=== PATIENT | male | born 1945 | race Caucasian/White ===

== ENCOUNTER 2020-07-10 01:49 | Inpatient (IN) | payer MEDICARE, OTHER ==
[~2020-07-10] VITALS: Ht 177.8 cm; Wt 54.5 kg
[2020-07-10] MEDS ORDERED: PANTOPRAZOLE 40 MG IV IVPush ONE (02:30)
[2020-07-10] MEDS ORDERED: PLEASE ENTER ALLERGIES MC SCH (02:30)
[2020-07-10] MEDS ORDERED: SODIUM CHLORIDE FLUSH 10ML SYR IVF ONE (02:30)
[2020-07-10] MEDS ORDERED: OCTREOTIDE 500 MCG in SODIUM CHLORIDE 0.9% 99 ML IV SCH (02:30)
[2020-07-10] MEDS ORDERED: PANTOPRAZOLE 80 MG in SODIUM CHLORIDE 0.9% 100 ML IV SCH (02:30)
[2020-07-10] MEDS ORDERED: PANTOPRAZOLE 40 MG IV ONE (02:55)
[2020-07-10 03:24] LABS: BASOPHILS % (AUTO) 2 % (0-1); EOSINOPHILS % (AUTO) 4 % (1-7); LYMPHOCYTES % (AUTO) 10 % (22-44); MEAN CORPUSCULAR HEMOGLOBIN 33.4 pg (27.5-34.5); MEAN CORPUSCULAR HGB CONC 32.6 g/dL (33.2-36.2); MEAN PLATELET VOLUME 8.6 fL (7.4-10.4); MONOCYTES % (AUTO) 21 % (2-9); NEUTROPHILS % (AUTO) 64 % (42-75); RED BLOOD COUNT 2.21 x10^6/uL (4.38-5.82); RED CELL DISTRIBUTION WIDTH 17.9 % (9.4-14.8)
[2020-07-10 03:33] LABS: ALANINE AMINOTRANSFERASE 21 U/L (12-78); ANION GAP 3 mmol/L (5-15); CALCIUM 7.9 mg/dL (8.5-10.1); CHLORIDE 104 mmol/L (98-107); CREATININE 3.55 mg/dL (0.7-1.3)
[2020-07-10 03:35] LABS: ALKALINE PHOSPHATASE 216 U/L (45-117); TOTAL PROTEIN 6.2 g/dL (6.4-8.2)
[2020-07-10 04:03] LABS: INTERNATIONAL NORMALIZED RATIO 1.3 (0.93-1.1); PROTHROMBIN TIME 13.7 Seconds (9.6-11.5)
[2020-07-10 04:19] LABS: MD YES; PLATELET COUNT 47 x10^3/uL (130-400)
[2020-07-10 04:23] LABS: ANISOCYTOSIS 1+; BAND#(MANUAL) 0.11 x10^3/uL; BANDS%(MANUAL) 3 % (0-7); EOS#(MANUAL) 0.18 x10^3/uL (0.0-0.4); EOS% (MANUAL) 5 % (1-7); LYMPH#(MANUAL) 0.29 x10^3/uL (1-3.4); LYMPHS% (MANUAL) 8 % (22-44); METAMYELOCYTES# (MANUAL) 0.07 x10^3/uL (0-0); METAMYELOCYTES% (MANUAL) 2 % (0-1); MONOS#(MANUAL) 0.47 x10^3/uL (0.3-2.7); MONOS% (MANUAL) 13 % (2-9); SEG#(MANUAL) 2.48 x10^3/uL (1.8-6.8); SEGS% (MANUAL) 69 % (42-75)
[2020-07-10 04:24] LABS: OVALOCYTES 1+
[2020-07-10 04:25] LABS: <PLATELET ESTIMATE> DECREASED; <PLT MORPHOLOGY> NORMAL PLT MORPH
[2020-07-10 04:54] VITALS: BP 99/59
[2020-07-10] MEDS ORDERED: morphine SULFATE 10 MG/ML, 1ML IVPush PRN (05:00)
[2020-07-10] MEDS ORDERED: OXYcodone IR 5MG TABLET PO PRN (05:00)
[2020-07-10] MEDS ORDERED: ONDANSETRON ODT 4 MG PO PRN (05:00)
[2020-07-10] MEDS ORDERED: hydrALAzine 20 MG/ML, 1ML IVPush PRN (05:00)
[2020-07-10] MEDS ORDERED: LABETALOL 5MG/ML, 20ML IVPush PRN (05:00)
[2020-07-10] MEDS ORDERED: LACTULOSE 10 GM/15 ML UDC PO SCH (05:00)
[2020-07-10] MEDS ORDERED: ONDANSETRON 2MG/ML, 2ML IVPush PRN (05:00)
[2020-07-10] MEDS ORDERED: PROMETHAZINE 25 MG/ML, 1ML IM PRN (05:00)
[2020-07-10 05:13] VITALS: BP 104/59
[2020-07-10 06:08] VITALS: BP 96/55
[2020-07-10 06:15] LABS: FREE T4 (FREE THYROXINE) 1.11 ng/dL (0.76-1.46)
[2020-07-10 06:34] VITALS: BP 118/66
[2020-07-10] MEDS: INSULIN LISPRO 100 UNITS/ML, PEN SQ-INSULIN SCH ×4 (07:00→20:56)
[2020-07-10] MEDS ORDERED: LIDOCAINE 1%, 10ML ONE (07:44)
[2020-07-10 09:54] LABS: CELLS COUNTED 47
[2020-07-10] MEDS: LACTULOSE 10 GM/15 ML UDC PO SCH ×3 (15:29→20:56)
[2020-07-10] MEDS: CEFTRIAXONE PMX 2GM/50ML 50 ML IVPB SCH (15:31)
[2020-07-10] MEDS ORDERED: MOVIPREP POWDER 1 PREP KIT PO ONE ×2 (18:00→20:30)
[2020-07-10 20:00] VITALS: BP 104/58
[2020-07-10] MEDS: OCTREOTIDE 500 MCG in SODIUM CHLORIDE 0.9% 99 ML IV SCH (20:52)
[2020-07-10] MEDS: PANTOPRAZOLE 80 MG in SODIUM CHLORIDE 0.9% 100 ML IV SCH (20:52)
[2020-07-10] MEDS: SODIUM BICARBONATE 650 MG TABLET PO SCH (20:55)
[2020-07-10] MEDS: RIFAXIMIN 550 MG TABLET PO SCH (20:55)
[2020-07-11 01:02] VITALS: BP 106/54
[2020-07-11 04:12] VITALS: BP 112/64
[2020-07-11 04:24] LABS: BASOPHILS % (AUTO) 2 % (0-1); EOSINOPHILS % (AUTO) 4 % (1-7); LYMPHOCYTES % (AUTO) 7 % (22-44); MEAN CORPUSCULAR HEMOGLOBIN 32.3 pg (27.5-34.5); MEAN CORPUSCULAR HGB CONC 32.9 g/dL (33.2-36.2); MEAN PLATELET VOLUME 8.5 fL (7.4-10.4); MONOCYTES % (AUTO) 13 % (2-9); NEUTROPHILS % (AUTO) 74 % (42-75); PLATELET COUNT 56 x10^3/uL (130-400); RED BLOOD COUNT 2.78 x10^6/uL (4.38-5.82); RED CELL DISTRIBUTION WIDTH 20.4 % (9.4-14.8)
[2020-07-11] MEDS: PANTOPRAZOLE 80 MG in SODIUM CHLORIDE 0.9% 100 ML IV SCH (04:30)
[2020-07-11] MEDS: OCTREOTIDE 500 MCG in SODIUM CHLORIDE 0.9% 99 ML IV SCH (04:30)
[2020-07-11] MEDS: LEVOTHYROXINE 125 MCG TABLET PO SCH (04:31)
[2020-07-11 04:37] LABS: ALANINE AMINOTRANSFERASE 21 U/L (12-78); ANION GAP 9 mmol/L (5-15); CHLORIDE 108 mmol/L (98-107); CHOLESTEROL, TOTAL 139 mg/dL (140-239); CREATININE 4.66 mg/dL (0.7-1.3); TRIGLYCERIDES 29 mg/dL (50-200); VLDL CHOLESTEROL 6 mg/dL (0-25)
[2020-07-11 04:39] LABS: ALKALINE PHOSPHATASE 160 U/L (45-117); BILIRUBIN,TOTAL 1.1 mg/dL (0.2-1.0); CHOL/HDL RATIO 3.5; HDL CHOL % 29 % (26-37); HDL CHOLESTEROL (DIRECT) 40 mg/dL (40-60); LDL CHOLESTEROL,CALCULATED 93 mg/dL (54-169); LDL/HDL RATIO 2.3 (0.5-3.0); TOTAL PROTEIN 6.1 g/dL (6.4-8.2)
[2020-07-11 05:43] LABS: MD SCAN
[2020-07-11 06:24] VITALS: BP 123/67
[2020-07-11] MEDS ORDERED: EPHEDRINE 50 MG/ML, 1ML IVPush PRN (07:30)
[2020-07-11] MEDS ORDERED: ONDANSETRON 2MG/ML, 2ML IVPush PRN (07:30)
[2020-07-11] MEDS ORDERED: MEPERIDINE/PF 25MG/0.5ML IVPush PRN (07:30)
[2020-07-11] MEDS ORDERED: PROMETHAZINE 25 MG/ML, 1ML IVPush PRN (07:30)
[2020-07-11] MEDS ORDERED: LABETALOL 5MG/ML, 20ML IV PRN (07:30)
[2020-07-11] MEDS ORDERED: hydrALAzine 20 MG/ML, 1ML IV PRN (07:30)
[2020-07-11] MEDS ORDERED: FENTANYL PF 100 MCG/2ML IV PRN (07:30)
[2020-07-11] MEDS: INSULIN LISPRO 100 UNITS/ML, PEN SQ-INSULIN SCH ×4 (08:13→20:37)
[2020-07-11] MEDS ORDERED: PROPOFOL 50 ML ONE (08:22)
[2020-07-11] MEDS ORDERED: EPHEDRINE 50 MG/ML, 1ML ONE (09:27)
[2020-07-11 11:13] VITALS: BP 99/55
[2020-07-11 12:16] VITALS: BP 105/62
[2020-07-11] MEDS: RIFAXIMIN 550 MG TABLET PO SCH ×2 (13:24→20:37)
[2020-07-11] MEDS: SODIUM BICARBONATE 650 MG TABLET PO SCH ×2 (13:24→20:37)
[2020-07-11] MEDS: CEFTRIAXONE PMX 2GM/50ML 50 ML IVPB SCH (13:25)
[2020-07-11] MEDS: LACTULOSE 10 GM/15 ML UDC PO SCH ×3 (13:25→20:35)
[2020-07-11] MEDS: PANTOPRAZOLE 40 MG IV IVPush SCH (15:14)
[2020-07-11 18:53] VITALS: BP 123/69
[2020-07-12 01:55] VITALS: BP 119/64
[2020-07-12] MEDS: PANTOPRAZOLE 40 MG IV IVPush SCH ×2 (03:13→14:19)
[2020-07-12] MEDS: LEVOTHYROXINE 125 MCG TABLET PO SCH (05:37)
[2020-07-12 06:32] LABS: ANION GAP 11 mmol/L (5-15); CALCIUM 8.2 mg/dL (8.5-10.1); CHLORIDE 106 mmol/L (98-107)
[2020-07-12 06:33] LABS: CREATININE 5.54 mg/dL (0.7-1.3)
[2020-07-12 06:36] LABS: BASOPHILS % (AUTO) 2 % (0-1); EOSINOPHILS % (AUTO) 6 % (1-7); LYMPHOCYTES % (AUTO) 7 % (22-44); MEAN CORPUSCULAR HEMOGLOBIN 32.5 pg (27.5-34.5); MEAN PLATELET VOLUME 9.4 fL (7.4-10.4); MONOCYTES % (AUTO) 16 % (2-9); NEUTROPHILS % (AUTO) 69 % (42-75); PLATELET COUNT 81 x10^3/uL (130-400); RED BLOOD COUNT 2.81 x10^6/uL (4.38-5.82); RED CELL DISTRIBUTION WIDTH 20.4 % (9.4-14.8)
[2020-07-12 06:53] LABS: MD NO
[2020-07-12 06:57] VITALS: BP 103/62
[2020-07-12] MEDS: INSULIN LISPRO 100 UNITS/ML, PEN SQ-INSULIN SCH ×2 (08:00→11:36)
[2020-07-12] MEDS: RIFAXIMIN 550 MG TABLET PO SCH (09:00)
[2020-07-12] MEDS: SODIUM BICARBONATE 650 MG TABLET PO SCH (09:00)
[2020-07-12] MEDS: LACTULOSE 10 GM/15 ML UDC PO SCH (09:00)
[2020-07-12 12:26] VITALS: BP 107/65
[2020-07-12] MEDS ORDERED: LEVO125T PO (12:52)
[2020-07-12] MEDS ORDERED: SODI650T PO (12:52)
[2020-07-12] MEDS ORDERED: LACT10SO28 PO (12:52)
[2020-07-12] MEDS ORDERED: PANT40TA6 PO (12:52)
[2020-07-12] MEDS ORDERED: CEFD300C37 PO (12:52)
[2020-07-12] MEDS: CEFTRIAXONE PMX 2GM/50ML 50 ML IVPB SCH (14:18)
== END 2020-07-12 15:25 | disposition home or self-care (01) | DRG 432 ==
LOC: ED 03:20 → EDIP 05:07 → 4WST 19:44 → DCLOUNGE 07-12 15:10
PROVIDERS: ADMIT Internal Medicine; ATTEND Hospitalist
PROC: 30233N1 Transfusion of Nonautologous Red Blood Cells into Peripheral Vein, Percutaneous Approach (ICD-10-PCS; principal; 2020-07-10)
PROC: 0W9G3ZZ Drainage of Peritoneal Cavity, Percutaneous Approach (ICD-10-PCS; 2020-07-10)
PROC: 0DJD8ZZ Inspection of Lower Intestinal Tract, Via Natural or Artificial Opening Endoscopic (ICD-10-PCS; 2020-07-11)
DX: K74.60 Unspecified cirrhosis of liver (principal); N18.6 End stage renal disease; K55.21 Angiodysplasia of colon with hemorrhage; D62 Acute posthemorrhagic anemia; I12.0 Hypertensive chronic kidney disease with stage 5 chronic kidney disease or end stage renal disease; D69.3 Immune thrombocytopenic purpura; K76.6 Portal hypertension; R18.8 Other ascites; E03.9 Hypothyroidism, unspecified; E11.22 Type 2 diabetes mellitus with diabetic chronic kidney disease; F03.90 Unspecified dementia, unspecified severity, without behavioral disturbance, psychotic disturbance, mood disturbance, and anxiety; E78.5 Hyperlipidemia, unspecified; I25.10 Atherosclerotic heart disease of native coronary artery without angina pectoris; K21.9 Gastro-esophageal reflux disease without esophagitis; K57.30 Diverticulosis of large intestine without perforation or abscess without bleeding; Z20.828 Contact with and (suspected) exposure to other viral communicable diseases; K72.90 Hepatic failure, unspecified without coma; Z87.891 Personal history of nicotine dependence; Z99.2 Dependence on renal dialysis; I25.2 Old myocardial infarction; Z95.5 Presence of coronary angioplasty implant and graft
CPT/HCPCS: 36415; 49083; 76700; 80048; 80053; 80061; 82042; 82140; 82728; 82962; 83036; 83540; 83550; 83615; 83690; 83735; 84157; 84439; 84443; 85014; 85018; 85025; 85610; 85730; 86850; 86900; 86923; 87070; 87205; 87635; 89051; 90935; 93005; 96374; 96375; 99291; G0378; J0696; J2354; J2704; C9113; J1815; P9016